=== PATIENT | male | born 1990 | race African-American/Black ===

== ENCOUNTER 2019-10-09 11:13 | Emergency (ER) | payer OTHER ==
[~2019-10-09] VITALS: Ht 157.5 cm; Wt 68.0 kg
[2019-10-09 12:15] VITALS: BP 136/81; TEMP 98.1
== END 2019-10-09 12:15 | disposition home or self-care (01) ==
LOC: ED 11:13
DX: H60.8X1 Other otitis externa, right ear (principal)
CPT/HCPCS: 99282